=== PATIENT | male | born 1985 ===

== ENCOUNTER 2025-06-02 15:22 | Outpatient (CLI) | payer OTHER, SELFPAY ==
--- NOTE | ~2025-06-02 | XR_ITS ---
EXAMINATION: XR knee LT min 4V, 06/02/2025 15:49 CDT HISTORY: M10.9 - Gout, unspecified COMPARISON: No comparisons available. Findings: No acute fracture or malalignment. No significant degenerative changes. Soft tissues unremarkable. Impression: No acute fracture or malalignment. Reviewed, dictated and finalized at location P. Impression: No acute fracture or malalignment.
== END 2025-06-02 15:23 | disposition home or self-care (01) ==
LOC: MICIMG 15:23
PROVIDERS: PCP Family Medicine; Visit Provider Nurse Practitioner Family
DX: M10.9 Gout, unspecified (principal); M25.562 Pain in left knee
CPT/HCPCS: 73564